=== PATIENT | male | born 1985 | race Caucasian/White ===

== ENCOUNTER 2023-10-20 21:00 | Emergency (ER) | payer OTHER, SELFPAY ==
--- NOTE | ~2023-10-20 | XR_ITS ---
EXAMINATION: XR ANKLE, LEFT CLINICAL INFORMATION: Injury COMPARISON: None available. TECHNIQUE: AP, lateral, and mortise views of the left ankle. FINDINGS: There is soft tissue swelling about the ankle more so laterally. There is a tiny ossific fragment inferior to lateral malleolus suggesting a small avulsion fracture likely off the lateral talus. Ankle mortise alignment is intact. No dislocation seen. No radiopaque foreign body or soft tissue gas. XR/XR ankle LT min 3V IMPRESSION: Soft tissue swelling about the ankle more so laterally. There is a tiny ossific fragment inferior to the lateral malleolus suggesting a small avulsion fracture.
[2023-10-20 21:34] VITALS: BP 130/70; PULSE 76; RESP 16; TEMP 37.2; O2SAT 96; BMI 26.3
--- NOTE | 2023-10-21 04:04 | ED_ITS ---
HPI - Extremity Injury (Lower) General Chief Complaint: Extremity Injury, Lower Stated Complaint: Left Ankle Inj Time Seen by Provider: 10/21/23 03:37 Source: patient Mode of arrival: ambulatory Limitations: no limitations History of Present Illness HPI Narrative: patient warming up for [employer]as do when he twisted his left ankle and heard a pop, no prior injury complaint: ankle injury Onset (ago): hour(s) Related Data Previous Rx's ?Medication ?Instructions ?Recorded naproxen 500 mg tablet (Naprosyn) 500 mg PO BID #20 tabs 10/21/23 Allergies Allergy/AdvReac Type Severity Reaction Status Date / Time No Known Allergies Allergy Verified 10/20/23 21:35 Review of Systems Review of Systems: Yes all other systems are reviewed and are negative Neurologic: Denies Sensory deficit (Neuro) [facility] Social History Social History Advance Directives: No Advance Directives Information Provided: Yes Physical Exam 2 Vital Signs: Vital Signs: Last Vital Signs Temp 98.9 F 10/20/23 21:34 Pulse 76 10/20/23 21:34 Resp 16 10/20/23 21:34 BP 130/70 10/20/23 21:34 Pulse Ox 96 10/20/23 21:34 O2 Del Method Room Air 10/20/23 21:34 BMI result Body Mass Index 26.3 Const: General: healthy appearing Nutritional Appearance: average body habitus Orientation/consciousness: oriented to person and patient oriented x3 Limitations: no limitations HEENT: Head: Yes normal to inspection Ears: external ears normal General nose exam: Normal external nose present Mouth: Normal oral and palatal mucosa present and oropharynx normal Throat: Yes posterior oropharynx normal Eyes: General: appearance normal, both eyes and all related structures Neck: Other: supple Neck: Yes normal visual inspection Chest: Chest palpation & inspection: normal inspection of the chest Resp: Auscultation: clear to auscultation bilaterally Cardio: Jugular venous distension: no JVD Rate: regular rate Rhythm: regular rhythm Heart sounds: S1 normal heart sound present and S2 normal heart sound present GI: Inspection: Yes normal to inspection Palpation (GI): Soft to palpation, nontender and No hepatosplenomegaly present Auscultation: normal bowel sounds : General: Yes no CVA tenderness Back/Spine/Pelvis: Back: no CVA tenderness Skin: General skin exam: no rashes or lesions noted Neuro: General: oriented to person and patient oriented x3 Cranial nerves: Yes CN's II-XII intact bilaterally Motor exam (neuro): 5/5 motor strength present throughout Sensory Exam: No Sensory deficit (Neuro) Extrem: Other: left ankle with lateral malleolous tenderness and swelling. Good pulses Psych: Appearance: grossly normal Course Reevaluation(s) Reevaluation #1: Patient with subtle avulsion fracture will place in splint and crutches and have patient follow up with ortho Time: 04:07 Medical Decision Making Differential Diagnosis Differential Diagnoses: The differential diagnosis associated with the presentation includes (ankle sprain, ankle fracture) Independent Interpretation I performed an independent interpretation of an: Plain X-Ray (no fracture seen) Radiology Impression Discussion of test interpretation with radiology: I have reviewed the radiologist's reading. (radiologist reading shows subtle avulsion fracture) Prescription Management I considered prescription management with: Pain Medication (no narcotics necessary) Discharge Plan Discharge Clinical Impression: Ankle fracture Patient Disposition: Home, Self-Care Instructions: Ankle Fracture (ED), Crutch Instructions (ED) Prescriptions: New naproxen [Naprosyn] 500 mg tablet 500 mg PO BID Qty: 20 0RF Referrals: [facility] – [place] [facility] [Provider Group] - 3 days Print Language: Citizen Of [place]
[2023-10-21 04:15] VITALS: BP 129/85; PULSE 62; RESP 17; TEMP 36.6; O2SAT 99
== END 2023-10-21 04:16 | disposition home or self-care (01) ==
PROVIDERS: Emergency Provider Emergency Medicine; PCP Internal Medicine
DX: S82.892A Other fracture of left lower leg, initial encounter for closed fracture (principal); X50.1XXA Overexertion from prolonged static or awkward postures, initial encounter; Y93.75 Activity, martial arts; Y92.9 Unspecified place or not applicable; Y99.9 Unspecified external cause status
CPT/HCPCS: 29515; 73610; 99283; 99284

== ENCOUNTER 2023-10-31 12:57 | Outpatient (AMB) | payer OTHER, SELFPAY ==
--- NOTE | 2023-10-31 12:59 | MHC.OFFVIS ---
Vital Signs 10/31/23 13:07 Height 6 ft 2 in Weight 204 lb BMI 26.2 Intake Visit Reasons: FC- left ankle fx, DOI 10/20/23 Intake Note: Patient presents today for left ankle fracture. DOI 10/20/23. Reports rolling his ankle and hearing a pop . Patient is visibly limping when ambulating. Currently wearing an aircast to help with pain. Has been taking Naproxen which helps his pain. States previous sprains 5-10 years ago. Reports it mimi healed on its own . 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 He currently states he has improvement in his pain however he continues to walk with a limp. He has been wearing an aircast to help with his pain. He finds relief with naproxen. He has a history of ankle sprains about 5-10 years ago. [facility] Social History (Updated 10/31/23 @ 13:03 by TONA Warren) Alcohol intake: current Alcohol intake frequency: a few times a month Patient Tobacco Use Status: Never used Tobacco Current occupation: right handed Review of Systems Const All systems reviewed & are unremarkable except as noted in HPI and below Physical Exam Vital Signs: BMI result Body Mass Index 26.2 Const General: cooperative, healthy appearing, comfortable, no acute distress, well developed and alert Orientation/consciousness: patient oriented x3 HEENT Head: Yes normal to inspection, Yes normocephalic and Yes atraumatic Eyes General: appearance normal, both eyes and all related structures Resp Effort & Inspection: normal respiratory effort and able to speak in complete sentences Cardio Rate: regular rate Peripheral pulses: Peripheral pulses 2+ throughout GI Palpation (GI): Soft to palpation Skin Lesions: no lesions Rashes: no rashes Neuro General: patient oriented x3 Extrem Other: Left ankle: Normal to inspection . No signficant swelling noted on exam. He has trace ecchymosis over the dorsum of the foot inline with the 2nd and 3rd toes. No tenderness to palpation along the metatarsals. Mild discomfort along the lateral malleolus and soft tissues., no deformity along the Achilles tendon, negative Davila?s. No pain along the syndesmosis or anterior tibia. No laxity, NVI. Office Procedures Fracture Care Fracture Billing Code: Fracture Billing Code Results Reviewed Results Reviewed: xrays of the left ankle obtained in the ED on 10/20/23 show avulsion fragment at the base of the lateral malleolus Assessment & Plan Assessment & Plan (1) Left ankle sprain: Code(s): S93.402A - Sprain of unspecified ligament of left ankle, initial encounter Category: Medical Qualifiers: Encounter type: initial encounter Involved ligament of ankle: anterior talofibular ligament Qualified Code(s): S93.492A - Sprain of other ligament of left ankle, initial encounter Plan We discussed options which include PT, NSAIDs and injections. The patient will defer on the injection today and proceed with PT and NSAIDs. He was also given a lace up ankle brace to help with activities. If symptoms persist, the patient will contact me for an injection, otherwise, PRN. Orders: Orders PT Evaluation and Treatment Today S93.402A - Sprain of unspecified ligament of left ankle, initial encounter Patient Instructions: Scribed for Juan Manuel Mcdowell PA-C, by Artis Shipley medical technicians, on 10/31/2023 at 1:15 PM EST. IJuan Manuel PA-C, have personally reviewed and agree with the information entered by the scribe. Coding Level of Care Code New Pt Level 3 (65178) Diagnoses Sprain of anterior talofibular ligament of left ankle, initial encounter S93.492A Encounter type: initial encounter Involved ligament of ankle: anterior talofibular ligament CPT Codes Fracture Care - Fracture Billing Code: Fracture Billing Code ([id number])
[2023-10-31 13:07] VITALS: BMI 26.2
== END 2023-10-31 13:28 | disposition home or self-care (01) ==
PROVIDERS: PCP Internal Medicine; Visit Provider Physician Assistant
DX: S93.492A Sprain of other ligament of left ankle, initial encounter (principal)
CPT/HCPCS: 99203

== ENCOUNTER → 2023-10-31 12:57 | Outpatient (BNVA) | payer OTHER, SELFPAY | PROVIDERS: PCP Internal Medicine; Visit Provider Physician Assistant ==

== ENCOUNTER 2025-06-05 09:27 | Outpatient (AMB) | payer OTHER, SELFPAY ==
--- NOTE | 2025-06-05 09:29 | MHC.OFFVIS ---
Vital Signs 06/05/25 09:38 Height 6 ft 2 in Weight 205 lb BMI 26.3 Intake Visit Reasons: New prob- Bilat shoulder pain Intake Note: Paulo is a 40 year old male who presents today as an established patient for a new problem visit with complaints of bilateral shoulder pain. Patient reports that his left shoulder causes him the most discomfort. Complaints of clicking, pulling and pinching. He has been using OTC Advil. No previous treatment. No traumatic injury however he mentions that he does a lot of lifting at work. Allergies No Known Allergies Allergy (Verified 06/05/25 09:39) Medication List - Last Reconciled 06/05/25 by Juan Manuel Mcdowell PA-C citalopram 20 mg PO DAILY naproxen (Naprosyn) 500 mg PO BID HPI HPI New prob- Bilat shoulder pain: Details: 40-year-old gentleman presents to the office today for bilateral shoulder pain. Pain has been presents for many years, h/o working out and possibly over doing it. Left worse than right. He works in IT. He states he needs to limit overhead presses and chest presses due to ongoing discomfort in the shoulder. He has no sensations or instability. No history of dislocations. [facility] Social History (Updated 10/31/23 @ 13:03 by TONA Warren) Alcohol intake: current Alcohol intake frequency: a few times a month Patient Tobacco Use Status: Never used Tobacco Current occupation: right handed Review of Systems Const All systems reviewed & are unremarkable except as noted in HPI and below Physical Exam Vital Signs: BMI result Body Mass Index 26.3 Const General: cooperative and no acute distress Orientation/consciousness: patient oriented x3 Resp Effort & Inspection: normal respiratory effort and able to speak in complete sentences Cardio Peripheral pulses: Peripheral pulses 2+ throughout Neuro General: patient oriented x3 Extrem Other: Bilateral shoulders full range of motion in all planes Mild tenderness over the proximal biceps with a positive Towns's bilaterally He is able to activate rotator cuff strength without weakness however he does have pain with lift-off bilaterally Neurovascularly intact Results Reviewed Results Reviewed: X-rays of both shoulders obtained in the office today and reviewed by me show mild glenohumeral joint arthritis Assessment & Plan Assessment & Plan (1) Arthritis of both glenohumeral joints: Code(s): M19.011 - Primary osteoarthritis, right shoulder; M19.012 - Primary osteoarthritis, left shoulder Category: Medical (2) Tendonitis of both rotator cuffs: Code(s): M75.81 - Other shoulder lesions, right shoulder; M75.82 - Other shoulder lesions, left shoulder Category: Medical Plan I discussed with the patient options which include physical therapy to work on rotator cuff and scapular stabilization techniques. He will hold off on formal physical therapy at this time. We did review in the office and exercises he can work on which includes rotator cuff strengthening with Thera-Bands along with scap and Lat muscle recruitment and stabilization techniques. I did explain he should rest the shoulder from overhead and pushing activities for approximately 2 weeks while he works on scap work. If symptoms persist or worsen he can contact our office and we can discuss further imaging options such as an MRI otherwise he will follow up as needed. Orders: Orders XR Shoulder Abel min 2V Today M25.519 - Pain in unspecified shoulder Coding Level of Care Code Complex visit Add On G2211 Diagnoses Arthritis of both glenohumeral joints M19.011; M19.012 Tendonitis of both rotator cuffs M75.81; M75.82
[2025-06-05 09:38] VITALS: BMI 26.3
== END 2025-06-05 10:23 | disposition home or self-care (01) ==
LOC: HO.HOS 09:27
PROVIDERS: PCP Internal Medicine; Visit Provider Physician Assistant
DX: M19.011 Primary osteoarthritis, right shoulder (principal); M19.012 Primary osteoarthritis, left shoulder; M75.81 Other shoulder lesions, right shoulder; M75.82 Other shoulder lesions, left shoulder
CPT/HCPCS: 99213; G2211

== ENCOUNTER → 2025-06-05 09:29 | Outpatient (BNV) | payer OTHER, SELFPAY | PROVIDERS: Visit Provider Radiology Diagnostic Radiology | DX: M19.011 Primary osteoarthritis, right shoulder (principal); M19.012 Primary osteoarthritis, left shoulder | CPT/HCPCS: 73030 ==

== ENCOUNTER 2025-06-05 10:30 | Outpatient (REF) | payer OTHER, SELFPAY ==
--- NOTE | ~2025-06-05 | XR_ITS ---
EXAMINATION: XR SHOULDER 2 OR MORE VIEWS BILATERAL HISTORY: M25.519 - Pain in unspecified shoulder COMPARISON: There are no prior studies available for comparison. FINDINGS: Six views of the bilateral shoulders are submitted. Osseous mineralization is normal. There is no fracture or dislocation. There is mild degenerative change of both lateral humeral joints with joint space narrowing and inferior osteophyte formation. The AC joint spaces are maintained. The soft tissues are unremarkable. XR/XR Shoulder Abel min 2V IMPRESSION: Mild degenerative change of the bilateral glenohumeral joints. Electronically signed by: Brett Hong MD 06/05/2025 09:42 AM EST
== END 2025-06-05 10:31 | disposition home or self-care (01) ==
LOC: HO.HOSX 10:30
PROVIDERS: Visit Provider Physician Assistant
DX: M19.011 Primary osteoarthritis, right shoulder (principal); M19.012 Primary osteoarthritis, left shoulder; M75.81 Other shoulder lesions, right shoulder; M75.82 Other shoulder lesions, left shoulder
CPT/HCPCS: 73030